=== PATIENT | male | born 1940 | race Caucasian/White ===

== ENCOUNTER 2021-09-20 18:08 | Emergency (ER) | payer BC, MEDICARE ==
[~2021-09-20] VITALS: Ht 172.7 cm; Wt 97.5 kg
[2021-09-20] MEDS ORDERED: BACITRACIN ZINC 0.9GM TP ONE (18:48)
[2021-09-20] MEDS ORDERED: TETANUS/DIPHTHERIA TOX ADULT 0.5 ML SYR IM ONE (19:00)
[2021-09-20] MEDS ORDERED: TETANUS/DIPHTHERIA TOX ADULT 0.5 ML SYR ONE (19:01)
== END 2021-09-20 19:01 | disposition home or self-care (01) ==
LOC: FSED 18:36
DX: S01.81XA Laceration without foreign body of other part of head, initial encounter (principal); W25.XXXA Contact with sharp glass, initial encounter; Y92.008 Other place in unspecified non-institutional (private) residence as the place of occurrence of the external cause; I25.10 Atherosclerotic heart disease of native coronary artery without angina pectoris; E78.5 Hyperlipidemia, unspecified; Z85.46 Personal history of malignant neoplasm of prostate
CPT/HCPCS: 90471; 90714; 99283